=== PATIENT | female | born 1970 | race Caucasian/White ===

== ENCOUNTER 2017-07-27 21:40 | Emergency (ER) | payer BC ==
--- NOTE | 2017-07-27 22:19 | RAD ---
PORTABLE CHEST: 07/27/17 HISTORY: Syncope. COMPARISON: 01/22/08 study. The heart size is borderline. Mediastinal structures are unremarkable. The lungs are clear of infilt rates. IMPRESSION: Borderline heart size. POS: [facility]
[2017-07-27 22:23] LABS: #Lymphocytes 1.3 thou/uL (1.20-3.40); #Monocytes 0.4 thou/uL (0.11-0.59); #Neutrophils 9.8 thou/uL (1.40-6.50); %Basophils 0.4 % (0.0-1.0); %Eosinophils 0.2 % (0.0-10.0); %Lymphocytes 11.3 % (21.0-51.0); %Monocytes 3.2 % (0.0-10.0); Mean Platelet Volume 6.2 fL (7.4-10.4); Red Blood Cell (RBC) Count 4.65 mill/uL (4.20-5.40); White Blood Cell (WBC) Count 11.5 thou/uL (4.8-10.8)
[2017-07-27 22:37] LABS: ALT (SGPT) 36 U/L (8-55); AST (SGOT) 23 U/L (5-34); Alkaline Phosphatase 107 U/L (40-150); Anion Gap 17 mmol/L (10-20); BUN (Urea Nitrogen) 13 mg/dL (7.0-18.7); Bilirubin, Total 0.3 mg/dL (0.2-1.2); CK (CPK) 52 U/L (29-168); Calc. Creatinine Clearance 0 mL/min (70-130); Calcium 9.2 mg/dL (7.8-10.44); Carbon Dioxide 26 mmol/L (22-29); Chloride 102 mmol/L (98-107); Estimated GFR-MDRD 64; Globulin 3.3 g/dL (2.4-3.5); Protein, Total 7.4 g/dL (6.0-8.3)
[2017-07-27 22:39] LABS: Troponin I Less than 0.010 ng/mL (< 0.028)
[2017-07-27] MEDS ORDERED: Potassium Chloride 20 MEQ TAB ONE (22:45)
[2017-07-27 23:20] LABS: Bilirubin Negative (Negative); Blood, Urine Negative (Negative); Glucose, Urine (Dipstick) Negative (Negative); Ketone, Urine Trace mg/dL (Negative); Nitrite Negative (Negative); Protein, Urine (Dipstick) Trace mg/dL (Neg-Trace); Urobilinogen 0.2 mg/dL (0.2-1.0)
[2017-07-27 23:22] LABS: RBC/HPF 0-3 HPF (0-3)
[2017-07-27 23:23] LABS: Bacteria/HPF 3+ HPF (None Seen); Hyaline Casts/LPF 0-3 HYALINE CAST LPF (0-3 Hyaline)
[2017-07-27 23:30] LABS: Amphetamine Detected (NotDetected); Methadone Not Detected (NotDetected); Methamphetamine Not Detected (NotDetected)
== END 2017-07-27 23:52 | disposition home or self-care (01) ==
LOC: SCSER 21:40
DX: E87.1 Hypo-osmolality and hyponatremia (principal); E86.0 Dehydration; F31.9 Bipolar disorder, unspecified; F41.9 Anxiety disorder, unspecified; F17.200 Nicotine dependence, unspecified, uncomplicated
CPT/HCPCS: 71010; 80053; 80306; 81003; 81015; 82550; 82553; 84484; 84703; 85025; 87086; 93005; 96360

== ENCOUNTER 2017-07-30 07:47 | Emergency (ER) | payer BC | END 2017-07-30 08:25 | disposition home or self-care (01) | LOC: ERS 07:47 | DX: F41.9 Anxiety disorder, unspecified (principal); F31.9 Bipolar disorder, unspecified; F17.200 Nicotine dependence, unspecified, uncomplicated; Z71.6 Tobacco abuse counseling | CPT/HCPCS: 99283 ==

== ENCOUNTER 2017-09-21 20:46 | Emergency (ER) | payer BC, SELFPAY ==
[2017-09-21] MEDS ORDERED: Lorazepam 2 MG/ML VIAL ONE (21:35)
[2017-09-21 22:08] LABS: ALT (SGPT) 17 U/L (8-55); AST (SGOT) 15 U/L (5-34); Alkaline Phosphatase 85 U/L (40-150); Anion Gap 13 mmol/L (10-20); BUN (Urea Nitrogen) 13 mg/dL (7.0-18.7); Bilirubin, Total 0.3 mg/dL (0.2-1.2); Calc. Creatinine Clearance 0 mL/min (70-130); Calcium 9.1 mg/dL (7.8-10.44); Carbon Dioxide 22 mmol/L (22-29); Chloride 108 mmol/L (98-107); Estimated GFR-MDRD 78; Protein, Total 6.9 g/dL (6.0-8.3)
[2017-09-21 22:38] LABS: Hemoglobin A1c 4.9 % (4.0-6.0)
== END 2017-09-21 23:24 | disposition home or self-care (01) ==
LOC: ERS 20:46
DX: F41.9 Anxiety disorder, unspecified (principal); F17.200 Nicotine dependence, unspecified, uncomplicated; F31.9 Bipolar disorder, unspecified; Z79.899 Other long term (current) drug therapy
CPT/HCPCS: 36415; 80053; 83036; 84443; 93005; 96361; 96374; J2060

== ENCOUNTER 2017-09-22 15:44 | Emergency (ER) | payer BC, SELFPAY | END 2017-09-22 17:24 | disposition home or self-care (01) | LOC: ERS 15:44 | DX: F41.9 Anxiety disorder, unspecified (principal); F31.9 Bipolar disorder, unspecified; F17.200 Nicotine dependence, unspecified, uncomplicated; Z79.899 Other long term (current) drug therapy | CPT/HCPCS: 99283 ==

== ENCOUNTER 2017-09-28 01:20 | Emergency (ER) | payer BC | END 2017-09-28 02:14 | disposition left against medical advice (07) | LOC: ERS 01:20 | DX: Z53.21 Procedure and treatment not carried out due to patient leaving prior to being seen by health care provider (principal) ==

== ENCOUNTER 2017-11-11 21:26 | Emergency (ER) | payer SELFPAY | END 2017-11-11 22:47 | disposition left against medical advice (07) | LOC: ERS 21:26 | DX: Z53.21 Procedure and treatment not carried out due to patient leaving prior to being seen by health care provider (principal) ==

== ENCOUNTER 2017-11-12 18:55 | Emergency (ER) | payer SELFPAY ==
[2017-11-12] MEDS ORDERED: Metoclopramide HCl 10 MG/2 ML VIAL ONE (22:33)
[2017-11-12] MEDS ORDERED: diphenhydrAMINE 50 MG/ML VIAL IVP SCH (22:45)
[2017-11-12] MEDS ORDERED: Metoclopramide HCl 10 MG/2 ML VIAL IVP SCH (22:45)
[2017-11-12] MEDS ORDERED: Sodium Chloride 0.9% 1,000 ML IV SCH (22:45)
== END 2017-11-12 23:44 | disposition home or self-care (01) ==
LOC: ERS 18:55
DX: G43.909 Migraine, unspecified, not intractable, without status migrainosus (principal); M62.830 Muscle spasm of back; F41.9 Anxiety disorder, unspecified; F17.210 Nicotine dependence, cigarettes, uncomplicated
CPT/HCPCS: 96365; J2765

== ENCOUNTER 2018-01-12 00:42 | Emergency (ER) | payer SELFPAY ==
[2018-01-12] MEDS ORDERED: Meclizine HCl 25 MG TAB ONE (02:45)
[2018-01-12 03:02] LABS: #Eosinphils 0.1 thou/uL (0.0-0.7); #Lymphocytes 2.2 thou/uL (1.20-3.40); #Neutrophils 8.9 thou/uL (1.40-6.50); %Basophils 0.2 % (0.0-1.0); %Eosinophils 1.2 % (0.0-10.0); %Monocytes 7.8 % (0.0-10.0); %Neutrophils 72.8 % (42.0-75.0); Mean Corpuscular HGB CONC 34.5 g/dL (32.0-36.0); Mean Corpuscular Hemoglobin 31.4 pg (27.0-31.0); Mean Corpuscular Volume 90.9 fl (81.0-99.0); Mean Platelet Volume 6.8 fL (7.4-10.4); Platelet Count 306 thou/uL (130-400); RBC Distribution Width 13.5 % (11.5-14.5); Red Blood Cell (RBC) Count 4.47 mill/uL (4.20-5.40); White Blood Cell (WBC) Count 12.2 thou/uL (4.8-10.8)
[2018-01-12 03:03] LABS: Bilirubin Negative (Negative); Blood, Urine Small (Negative); Clarity CLOUDY (Clear); Glucose, Urine (Dipstick) Negative (Negative); Leukocyte Moderate (Negative); Nitrite Negative (Negative); Pregnancy Test - Urine (BHCG) Negative (Negative); Pregu Control Background? CLEAR/WHITE (CLR/WHITE); Pregu Control Bar Appear? YES (CONTROL BAR); Protein, Urine (Dipstick) Negative (Neg-Trace); Specific Gravity 1.019 (1.002-1.036); Specific Gravity, Urine 1.019 (1.002-1.036); Urobilinogen 0.2 mg/dL (0.2-1.0)
[2018-01-12 03:05] LABS: Bacteria/HPF None Seen HPF (None Seen); Hyaline Casts/LPF 7-10 HYALINE CAST LPF (0-3 Hyaline); Pathc Cast-AUWi Flag 1.88 (0-2.49); RBC/HPF 21-50 HPF (0-3)
[2018-01-12 03:13] LABS: Amphetamine Detected (NotDetected); Barbiturates Screen Not Detected (NotDetected); Benzodiazepine Screen Not Detected (NotDetected); Cocaine Metabolite Screen Not Detected (NotDetected); Medtox Control Line Valid? VALID (VALID); Medtox Reader # READER 4; Methadone Not Detected (NotDetected); Methamphetamine Not Detected (NotDetected); Opiate Screen Not Detected (NotDetected); Oxycodone Screen Not Detected (NotDetected); Phencyclidine (PCP) Not Detected (NotDetected); THC/Cannabinoid Screen Not Detected (NotDetected); Tricyclic Screen Not Detected (NotDetected)
[2018-01-12 03:25] LABS: ALT (SGPT) 16 U/L (8-55); AST (SGOT) 14 U/L (5-34); Albumin 4.1 g/dL (3.5-5.0); Alkaline Phosphatase 87 U/L (40-150); Anion Gap 11 mmol/L (10-20); BUN (Urea Nitrogen) 16 mg/dL (7.0-18.7); Bilirubin, Total 0.3 mg/dL (0.2-1.2); Calc. Creatinine Clearance 0 mL/min (70-130); Calcium 9.5 mg/dL (7.8-10.44); Carbon Dioxide 27 mmol/L (22-29); Chloride 106 mmol/L (98-107); Estimated GFR-MDRD 81; Globulin 2.8 g/dL (2.4-3.5); Glucose 92 mg/dL (70-105); Potassium 3.6 mmol/L (3.5-5.1); Protein, Total 6.9 g/dL (6.0-8.3); Sodium 140 mmol/L (136-145)
[2018-01-12 03:38] LABS: Renal Epithelial None Seen HPF (0-3); Transitional Epithelial NONE SEEN HPF (0-3); Trichomonas/HPF None Seen HPF (None Seen)
== END 2018-01-12 04:15 | disposition home or self-care (01) ==
LOC: ERS 00:42
DX: G43.909 Migraine, unspecified, not intractable, without status migrainosus; F41.9 Anxiety disorder, unspecified; N39.0 Urinary tract infection, site not specified; F98.8 Other specified behavioral and emotional disorders with onset usually occurring in childhood and adolescence; H81.10 Benign paroxysmal vertigo, unspecified ear; F43.10 Post-traumatic stress disorder, unspecified; F17.210 Nicotine dependence, cigarettes, uncomplicated; F31.9 Bipolar disorder, unspecified
CPT/HCPCS: 36415; 80053; 80306; 81003; 81015; 81025; 84443; 85025; 93005; 96360

== ENCOUNTER 2018-01-23 01:28 | Emergency (ER) | payer SELFPAY ==
[2018-01-23 02:01] LABS: #Basophils 0.1 thou/uL (0.0-0.2); #Eosinphils 0.4 thou/uL (0.0-0.7); #Lymphocytes 3.1 thou/uL (1.20-3.40); #Monocytes 0.8 thou/uL (0.11-0.59); #Neutrophils 6.2 thou/uL (1.40-6.50); %Basophils 1.1 % (0.0-1.0); %Monocytes 7.6 % (0.0-10.0); %Neutrophils 58.3 % (42.0-75.0); Hemoglobin 12.8 g/dL (12.0-16.0); Mean Corpuscular HGB CONC 32.1 g/dL (32.0-36.0); Mean Corpuscular Hemoglobin 30.1 pg (27.0-31.0); Mean Corpuscular Volume 93.8 fl (81.0-99.0); Mean Platelet Volume 7.7 fL (7.4-10.4); Platelet Count 257 thou/uL (130-400); RBC Distribution Width 13.5 % (11.5-14.5); Red Blood Cell (RBC) Count 4.23 mill/uL (4.20-5.40); White Blood Cell (WBC) Count 10.6 thou/uL (4.8-10.8)
[2018-01-23 02:20] LABS: ALT (SGPT) 37 U/L (8-55); AST (SGOT) 24 U/L (5-34); Albumin 3.8 g/dL (3.5-5.0); Alkaline Phosphatase 83 U/L (40-150); Anion Gap 7 mmol/L (10-20); BUN (Urea Nitrogen) 18 mg/dL (7.0-18.7); Bilirubin, Total 0.2 mg/dL (0.2-1.2); Calc. Creatinine Clearance 0 mL/min (70-130); Carbon Dioxide 27 mmol/L (22-29); Chloride 111 mmol/L (98-107); Estimated GFR-MDRD 83; Globulin 2.8 g/dL (2.4-3.5); Glucose 90 mg/dL (70-105); Potassium 3.7 mmol/L (3.5-5.1); Protein, Total 6.6 g/dL (6.0-8.3); Sodium 141 mmol/L (136-145)
[2018-01-23] MEDS ORDERED: Meclizine HCl 25 MG TAB ONE (02:58)
[2018-01-23] MEDS ORDERED: Ondansetron ODT 4 MG TAB ONE (02:59)
== END 2018-01-23 03:19 | disposition home or self-care (01) ==
LOC: ERS 01:28 → EEVIPCON 01:28 → ERS 03:19
DX: H81.13 Benign paroxysmal vertigo, bilateral (principal); G43.909 Migraine, unspecified, not intractable, without status migrainosus; F98.8 Other specified behavioral and emotional disorders with onset usually occurring in childhood and adolescence; F43.10 Post-traumatic stress disorder, unspecified; F17.210 Nicotine dependence, cigarettes, uncomplicated; F41.9 Anxiety disorder, unspecified; F31.9 Bipolar disorder, unspecified; Z79.899 Other long term (current) drug therapy
CPT/HCPCS: 36415; 80053; 85025; 93005; Q0162

== ENCOUNTER 2018-01-29 02:37 | Emergency (ER) | payer SELFPAY | END 2018-01-29 03:24 | disposition home or self-care (01) | LOC: ERS 02:37 | DX: F41.1 Generalized anxiety disorder (principal); G43.909 Migraine, unspecified, not intractable, without status migrainosus; F98.8 Other specified behavioral and emotional disorders with onset usually occurring in childhood and adolescence; F41.9 Anxiety disorder, unspecified; F43.10 Post-traumatic stress disorder, unspecified; F31.9 Bipolar disorder, unspecified; F17.210 Nicotine dependence, cigarettes, uncomplicated; Z79.899 Other long term (current) drug therapy | CPT/HCPCS: 99283 ==

== ENCOUNTER 2018-02-28 21:35 | Emergency (ER) | payer SELFPAY ==
[2018-02-28 22:34] LABS: #Basophils 0.1 thou/uL (0.0-0.2); #Eosinphils 0.1 thou/uL (0.0-0.7); #Lymphocytes 1.7 thou/uL (1.20-3.40); #Monocytes 0.7 thou/uL (0.11-0.59); #Neutrophils 7.4 thou/uL (1.40-6.50); %Basophils 0.6 % (0.0-1.0); %Eosinophils 0.9 % (0.0-10.0); %Lymphocytes 17.2 % (21.0-51.0); %Monocytes 6.6 % (0.0-10.0); %Neutrophils 74.7 % (42.0-75.0); Mean Corpuscular Hemoglobin 30.7 pg (27.0-31.0); Mean Corpuscular Volume 92.9 fl (81.0-99.0); Platelet Count 332 thou/uL (130-400); RBC Distribution Width 13.7 % (11.5-14.5); Red Blood Cell (RBC) Count 4.58 mill/uL (4.20-5.40); White Blood Cell (WBC) Count 9.9 thou/uL (4.8-10.8)
[2018-02-28 22:52] LABS: Acetaminophen Less than 6.0 mcg/mL (10.0-30.0); Alcohol Less than 10 mg/dL (Less than 10); CK (CPK) 59 U/L (29-168); Salicylate Less than 8.0 mg/dL (15.0-30.0)
[2018-02-28 22:53] LABS: ALT (SGPT) 21 U/L (8-55); AST (SGOT) 16 U/L (5-34); Albumin 3.8 g/dL (3.5-5.0); Alkaline Phosphatase 69 U/L (40-150); Anion Gap 11 mmol/L (10-20); BUN (Urea Nitrogen) 13 mg/dL (7.0-18.7); Bilirubin, Total 0.9 mg/dL (0.2-1.2); Calc. Creatinine Clearance 0 mL/min (70-130); Carbon Dioxide 28 mmol/L (22-29); Chloride 106 mmol/L (98-107); Estimated GFR-MDRD 78; Globulin 2.5 g/dL (2.4-3.5); Glucose 98 mg/dL (70-105); Potassium 3.1 mmol/L (3.5-5.1); Protein, Total 6.3 g/dL (6.0-8.3); Sodium 142 mmol/L (136-145)
== END 2018-03-01 01:25 | disposition home or self-care (01) ==
LOC: ERS 21:35
DX: F41.9 Anxiety disorder, unspecified (principal); G43.909 Migraine, unspecified, not intractable, without status migrainosus; F98.8 Other specified behavioral and emotional disorders with onset usually occurring in childhood and adolescence; F43.10 Post-traumatic stress disorder, unspecified; F17.210 Nicotine dependence, cigarettes, uncomplicated
CPT/HCPCS: 36415; 80053; 80307; 82550; 84443; 85025; 93005

== ENCOUNTER 2018-04-08 03:00 | Emergency (ER) | payer SELFPAY ==
[2018-04-08] MEDS ORDERED: Ibuprofen 200 MG TAB ONE (04:19)
--- NOTE | 2018-04-08 09:12 | RAD ---
LEFT FOREARM 2 VIEWS: HISTORY: Left forearm pain. FINDINGS/IMPRESSION: No bony abnormality is seen. The left radius and ulna appear intact. There is a small osteophyte ar ising from the coronoid process of the ulna. POS: [facility]
== END 2018-04-08 04:24 | disposition home or self-care (01) ==
LOC: ERS 03:00
DX: M25.532 Pain in left wrist (principal); G43.909 Migraine, unspecified, not intractable, without status migrainosus; F41.9 Anxiety disorder, unspecified; F43.10 Post-traumatic stress disorder, unspecified; F31.9 Bipolar disorder, unspecified; F98.8 Other specified behavioral and emotional disorders with onset usually occurring in childhood and adolescence; F17.210 Nicotine dependence, cigarettes, uncomplicated; Z79.899 Other long term (current) drug therapy

== ENCOUNTER 2018-04-18 18:17 | Inpatient (IN) | payer SELFPAY ==
[2018-04-18] MEDS ORDERED: Succinylcholine Chloride 20 MG/ML 10 ml SYRINGE FS ONE (18:23)
[2018-04-18] MEDS ORDERED: Propofol 1,000 MG/100 ML VIAL IV ONE (18:42)
[2018-04-18 18:49] LABS: #Basophils 0.1 thou/uL (0.0-0.2); #Eosinphils 0.3 thou/uL (0.0-0.7); #Lymphocytes 3.2 thou/uL (1.20-3.40); #Neutrophils 5.5 thou/uL (1.40-6.50); %Basophils 1.2 % (0.0-1.0); %Eosinophils 2.9 % (0.0-10.0); %Lymphocytes 31.6 % (21.0-51.0); %Monocytes 9.4 % (0.0-10.0); %Neutrophils 54.9 % (42.0-75.0); Hemoglobin 12.1 g/dL (12.0-16.0); Mean Corpuscular HGB CONC 33.9 g/dL (32.0-36.0); Mean Corpuscular Hemoglobin 31.6 pg (27.0-31.0); Mean Corpuscular Volume 93.1 fL (78.0-98.0); Mean Platelet Volume 7.1 fL (7.4-10.4); Platelet Count 240 thou/uL (130-400); RBC Distribution Width 13.7 % (11.5-14.5); Red Blood Cell (RBC) Count 3.85 mill/uL (4.20-5.40); White Blood Cell (WBC) Count 10.1 thou/uL (4.8-10.8)
[2018-04-18 18:55] LABS: ALT (SGPT) 15 U/L (8-55); AST (SGOT) 18 U/L (5-34); Acetaminophen Less than 6.0 mcg/mL (10.0-30.0); Albumin 3.5 g/dL (3.5-5.0); Alcohol Less than 10 mg/dL (Less than 10); Alkaline Phosphatase 71 U/L (40-150); Anion Gap 10 mmol/L (10-20); BUN (Urea Nitrogen) 20 mg/dL (7.0-18.7); Bilirubin, Total 0.2 mg/dL (0.2-1.2); Calc. Creatinine Clearance 0 mL/min (70-130); Calcium 8.3 mg/dL (7.8-10.44); Carbon Dioxide 27 mmol/L (22-29); Chloride 111 mmol/L (98-107); Estimated GFR-MDRD 74; Globulin 2.1 g/dL (2.4-3.5); Glucose 115 mg/dL (70-105); Potassium 3.8 mmol/L (3.5-5.1); Protein, Total 5.6 g/dL (6.0-8.3); Salicylate Less than 8.0 mg/dL (15.0-30.0); Sodium 144 mmol/L (136-145)
[2018-04-18 19:03] LABS: Bilirubin Negative (Negative); Blood, Urine Negative (Negative); Clarity CLEAR (Clear); Glucose, Urine (Dipstick) Negative (Negative); Leukocyte Negative (Negative); Nitrite Negative (Negative); Protein, Urine (Dipstick) Negative (Neg-Trace); Specific Gravity, Urine 1.011 (1.002-1.036); Urobilinogen 0.2 mg/dL (0.2-1.0); pH, Urine 6.5 (5.0-9.0)
[2018-04-18 19:03] LABS: Actual Bicarbonate (HCO3a) 24.9 mEq/L (22-28); Base Excess (BEa) -0.6 mEq/L (-2.0 to +3.0); CO2 Tension 44.3 mmHg (35.0-45.0); Hematocrit-ABG 35.5 % (36.0-47.0); Hemoglobin (Hb) 11.5 g/dL (12.0-16.0); O2 Tension (PaO2) 174.5 mmHg (80.0-100.0); pH, Arterial 7.37 (7.35-7.45)
[2018-04-18 19:04] LABS: ALV-art Gradient 55.325 (0-20); Analyzer IN Cardio ER; Calcium, Ionized 1.2 mmol/L (1.12-1.30); Puncture Site L RADIAL
[2018-04-18 19:08] LABS: Pregnancy Test - Urine (BHCG) Negative (Negative); Pregu Control Background? CLEAR/WHITE (CLR/WHITE); Pregu Control Bar Appear? YES (CONTROL BAR); Specific Gravity 1.011 (1.002-1.036)
[2018-04-18 19:09] LABS: Amphetamine Not Detected (NotDetected); Barbiturates Screen Not Detected (NotDetected); Benzodiazepine Screen Not Detected (NotDetected); Cocaine Metabolite Screen Not Detected (NotDetected); Medtox Control Line Valid? VALID (VALID); Medtox Reader # READER 1; Methadone Not Detected (NotDetected); Methamphetamine Not Detected (NotDetected); Opiate Screen Not Detected (NotDetected); Oxycodone Screen Not Detected (NotDetected); Phencyclidine (PCP) Not Detected (NotDetected); THC/Cannabinoid Screen Not Detected (NotDetected); Tricyclic Screen Not Detected (NotDetected)
--- NOTE | 2018-04-18 19:15 | RAD ---
AP VIEW CHEST: 04/18/18 HISTORY: Drug overdose. Sluggish speech. AP view chest is obtained on 04/18/18. Comparison made to previous exam from 07/27/17. The AP view chest demonstrates nasogastric and endotracheal tubes to be in place. The lungs are well aerated. No evidence of active intrathoracic disease seen. No evidence of effusions, pneumonia or pne umothorax seen. IMPRESSION: Unremarkable AP view chest. POS: [facility]
[2018-04-18] MEDS ORDERED: Ventilator Sedation Protocol 1 EACH FS ONE (20:54)
[2018-04-18] MEDS ORDERED: Propofol BOLUS 1,000 MG/100 ML VIAL IV PRN (20:58)
[2018-04-18] MEDS ORDERED: fentaNYL Citrate/PF 2,000 MCG in Sodium Chloride 0.9% 60 ML IV SCH (20:58)
[2018-04-18] MEDS ORDERED: Fentanyl BOLUS 250 ML IVPB PRN (20:58)
[2018-04-18] MEDS ORDERED: Lorazepam 2 MG/ML VIAL SLOW IVP PRN (20:58)
[2018-04-18] MEDS ORDERED: DISCONTINUE PREVIOUS NARCOTIC PAIN MEDICATIONS AND BENZODIAZEPINES FS SCH (20:58)
[2018-04-18] MEDS ORDERED: Propofol 1,000 MG/100 ML VIAL IV PRN (20:58)
[2018-04-18] MEDS ORDERED: Enoxaparin Sodium 30 MG/0.3 ML SYRINGE SC SCH (21:00)
[2018-04-18] MEDS: Sodium Chloride 0.9% 1,000 ML IV SCH (22:18)
[2018-04-18] MEDS: Famotidine/PF 20 mg/2ml Vial SLOW IVP SCH (22:20)
[2018-04-19 04:07] LABS: #Basophils 0.1 thou/uL (0.0-0.2); #Eosinphils 0.3 thou/uL (0.0-0.7); #Lymphocytes 2.7 thou/uL (1.20-3.40); #Monocytes 0.8 thou/uL (0.11-0.59); #Neutrophils 5.1 thou/uL (1.40-6.50); %Basophils 0.7 % (0.0-1.0); %Eosinophils 3.2 % (0.0-10.0); %Lymphocytes 30.4 % (21.0-51.0); %Monocytes 9.1 % (0.0-10.0); %Neutrophils 56.7 % (42.0-75.0); Hemoglobin 10.5 g/dL (12.0-16.0); Mean Corpuscular HGB CONC 33.6 g/dL (32.0-36.0); Mean Corpuscular Hemoglobin 31.6 pg (27.0-31.0); Mean Corpuscular Volume 94.3 fL (78.0-98.0); Platelet Count 200 thou/uL (130-400); RBC Distribution Width 13.6 % (11.5-14.5); Red Blood Cell (RBC) Count 3.31 mill/uL (4.20-5.40)
[2018-04-19 04:13] LABS: Anion Gap 8 mmol/L (10-20); BUN (Urea Nitrogen) 13 mg/dL (7.0-18.7); Calc. Creatinine Clearance 155 mL/min (70-130); Calcium 7.4 mg/dL (7.8-10.44); Carbon Dioxide 22 mmol/L (22-29); Chloride 118 mmol/L (98-107); Estimated GFR-MDRD Greater than 90; Glucose 106 mg/dL (70-105); Potassium 3.6 mmol/L (3.5-5.1); Sodium 144 mmol/L (136-145)
[2018-04-19] MEDS: Sodium Chloride 0.9% 1,000 ML IV SCH ×2 (08:00→18:29)
--- NOTE | 2018-04-19 08:13 | HP ---
DATE OF ADMISSION: 04/18/2018 CHIEF COMPLAINT: Decreased mental status. HISTORY OF PRESENT ILLNESS: This is a 48-year-old female with a known history of anxiety who present ed after being found to be overly somnolent. At the time of my evaluation in the emergency departmen t, the patient has already been intubated and is currently sedated on propofol. It appears that deo ent took clonazepam approximately 1 hour prior to EMS arrival. The patient was drowsy, but arousable . Upon EMS arrival, however, upon arrival in the emergency department, had progressively decreased m entation. REVIEW OF SYSTEMS: Unable to obtain secondary to patient's mentation. PAST MEDICAL HISTORY: Significant for anxiety and migraines, status post cholecystectomy. Also, not able psychiatric history for bipolar disorder and anxiety without any prior history of either suicida l ideation or suicide attempt. As the patient is unable to provide, this history was gathered from h er prior record. HOME MEDICATIONS: Significant for Zyprexa and clonazepam. ALLERGIES: No known drug allergies. FAMILY HISTORY: Unknown secondary to patient is unable to provide. SOCIAL HISTORY: Appears that patient has a prior history noted for occasional tobacco use with an un specified quantity. No alcohol use history nor any substance abuse history. PHYSICAL EXAMINATION: GENERAL: The patient is lying in the hospital bed, intubated, sedated. HEENT: Normocephalic, atraumatic. ET tube being in place. CARDIOVASCULAR: S1, S2. Soft heart tones. Pulses 2+ bilateral upper extremities, no pitting pedal edema. RESPIRATORY: Limited anterior examination notable for prominent ventilator sounds bilaterally. ABDOMEN: Positive bowel sounds, soft. LABORATORY DATA: WBC 10.1, hemoglobin 12.1, hematocrit 35.8, platelets 240. ABG: pH of 7.37, pO2 o f 174, pCO2 of 44.3, bicarbonate 24.9. CMP: Sodium 144, chloride of 118, potassium 3.8, bicarbonate 27, BUN 20, creatinine 0.83, glucose 115, calcium 8.3, total bilirubin 0.2, AST 18, ALT 15, alkaline phosphatase 71, total protein 5.6, albumin 3.5. UA is essentially bland. Urine test is n egative. UDS is essentially negative as well. Plasma alcohol level is negative. ASSESSMENT AND PLAN: 1. A 48-year-old female presenting with benzodiazepine overdose. I do not want benzodiazepine overd ose, status post intubation. I appreciate pulmonary consultation. Do not currently suspect that the patient has a primary pulmonary process likely due to decreased mentation or toxic metabolic encepha lopathy secondary to benzodiazepine overdose. 2. Suicide attempt. Patient is presumed to have a suicide attempt secondary to her known prior psyc hiatric diagnoses. She will require MS[facility] clearance prior to discharge. The patient is currently int ubated with sedation p.r.n. Poison Control has been notified through the emergency department accord ing to report that I received. 3. Deep venous thrombosis prophylaxis, enoxaparin. 4. Activity, currently bed rest. Thank you for asking me to care for the patient. Questions or concerns, please contact me at [facility].
--- NOTE | 2018-04-19 10:01 | CON ---
DATE OF CONSULTATION: 04/19/2018 A 35 minutes critical care time. CONSULTING PHYSICIAN: Dr. Mcdermott. REASON FOR CONSULTATION: Critical care management. HISTORY OF PRESENT ILLNESS: This is a 48-year-old female who presented to the emergency room yesterd ay with an apparent overdose on benzodiazepines. At the time of my dictation, there is no history an d physical on the chart, so what I have is obtained by looking at the ER records as the patient canno t give history. This patient was intubated at some point. I am not sure if that was in the field or in the ER. She was left on mechanical ventilation overnight. This morning, she will wake up and move around. PAST MEDICAL HISTORY: 1. Migraine headaches. 2. Anxiety. 3. Attention deficit disorder. 4. Post-traumatic stress disorder. 5. Bipolar disorder. PAST SURGICAL HISTORY: Cholecystectomy. SOCIAL HISTORY: Nonsmoker, does not use illicit drugs. Does smoke. MEDICATIONS PRIOR TO ADMISSION: It sounds like she was taking clonazepam, I am not sure if her compl ete list is accurate. Zyprexa is also listed. REVIEW OF SYSTEMS: Unobtainable as the patient is intubated. PHYSICAL EXAMINATION: VITAL SIGNS: Temperature 98.9, pulse 74, blood pressure 96/54, O2 sat 100%. HEENT: Pupils react. Sclerae are anicteric. Oropharynx clear. NECK: No JVD. LUNGS: Clear anteriorly. CARDIOVASCULAR: S1, S2 regular, without murmur. ABDOMEN: Soft, nontender, nondistended. EXTREMITIES: No clubbing, cyanosis, or edema. NEUROLOGIC: She moves all 4 extremities. LABORATORY DATA: White blood cell count 9, hematocrit 31.2, platelet count 200. ABG, pH 7.37, pCO2 44, PO2 of 174. Sodium 144, potassium 3.6, chloride 118, CO2 of 22, BUN 13, creatinine 0.6, glucose 106. ASSESSMENT: 1. Overdose - I am not sure if this was an intentional overdose or not. 2. Acute respiratory failure. PLAN: This patient is stable enough from a neurologic standpoint to be extubated, we can watch her i n the ICU several hours after extubation. It is likely that she will be medically cleared by this af ternoon for psychiatric disposition.
[2018-04-19] MEDS: Famotidine/PF 20 mg/2ml Vial SLOW IVP SCH ×2 (10:29→20:29)
[2018-04-20 05:40] LABS: #Basophils 0.1 thou/uL (0.0-0.2); #Eosinphils 0.2 thou/uL (0.0-0.7); #Lymphocytes 2.1 thou/uL (1.20-3.40); #Monocytes 0.7 thou/uL (0.11-0.59); #Neutrophils 5.9 thou/uL (1.40-6.50); %Basophils 0.6 % (0.0-1.0); %Eosinophils 2.4 % (0.0-10.0); %Lymphocytes 23.4 % (21.0-51.0); %Monocytes 8.2 % (0.0-10.0); %Neutrophils 65.5 % (42.0-75.0); Hemoglobin 11.7 g/dL (12.0-16.0); Mean Corpuscular HGB CONC 32.7 g/dL (32.0-36.0); Mean Corpuscular Hemoglobin 30.8 pg (27.0-31.0); Mean Corpuscular Volume 94.4 fL (78.0-98.0); Mean Platelet Volume 7.1 fL (7.4-10.4); Platelet Count 215 thou/uL (130-400); RBC Distribution Width 13.6 % (11.5-14.5)
[2018-04-20 05:45] LABS: Anion Gap 9 mmol/L (10-20); BUN (Urea Nitrogen) 5 mg/dL (7.0-18.7); Calc. Creatinine Clearance 137 mL/min (70-130); Calcium 7.9 mg/dL (7.8-10.44); Carbon Dioxide 24 mmol/L (22-29); Chloride 113 mmol/L (98-107); Estimated GFR-MDRD Greater than 90; Glucose 104 mg/dL (70-105); Potassium 3.4 mmol/L (3.5-5.1); Sodium 143 mmol/L (136-145)
[2018-04-20] MEDS: Sodium Chloride 0.9% 1,000 ML IV SCH (05:59)
--- NOTE | 2018-04-20 09:02 | PRG ---
DATE OF SERVICE: 04/20/2018 SUBJECTIVE: She is awake, alert, in no distress. She tells me that she accidentally took too much S eroquel and was not trying to hurt herself. PHYSICAL EXAMINATION: VITAL SIGNS: Temperature 98.3, pulse 84, blood pressure 120/78. HEENT: Unremarkable. NECK: No JVD. CHEST: Clear. CARDIAC: S1 and S2 regular. ABDOMEN: Soft. EXTREMITIES: No edema. LABORATORY DATA: Sodium 143, potassium 3.4, chloride 113, CO2 24, BUN 5, creatinine 0.7 and glucose 104. White blood cell count 9, hematocrit 35.9 and platelet count 215. ASSESSMENT: Status post unintentional overdose, status post respiratory failure. PLAN: She is cleared from a medical standpoint for further evaluation by [facility] and possible discharge today.
[2018-04-20] MEDS ORDERED: Potassium Chloride 20 MEQ TAB PO SCH (11:30)
[2018-04-20 11:37] VITALS: TEMP 98.4
--- NOTE | 2018-04-20 23:30 | DIS ---
DATE OF ADMISSION: 04/19/2018 DATE OF DISCHARGE: 04/20/2018 PRIMARY CARE PHYSICIAN: Korey Ramos MD DISCHARGE DIAGNOSES: 1. Accidental overdose on Seroquel. 2. Status post respiratory failure secondary to acute encephalopathy due to drug overdose. 3. History of bipolar disorder. IN-HOUSE CONSULTATIONS: 1. Pulmonary Critical Care Medicine, Dr. Levin. 2. [facility]. DISCHARGE MEDICATIONS: Resume home medications clonazepam 0.5 mg p.o. t.i.d. and 1 mg at bedtime, an d Zyprexa 20 mg daily. HISTORY OF PRESENT ILLNESS: Ms. Parmar is a 48-year-old female with known history of anxiety and depr ession, on multiple psychiatric medications; who presented to the emergency room with complaints of d ecreased mental status. At the time of presentation, it was unsure if the patient took clonazepam or overdosed on any other medication. She was intubated in the emergency room because of reduced menta l capacity and difficult to maintain airway. Drug screen in the urine was negative. Plasma alcohol level was negative. She was otherwise hemodynamically stable. She was admitted to the Critical Care Unit as a suicidal attempt. Please see admission history and physical for further details. HOSPITAL COURSE: Dr. Levin saw the patient in the critical care unit and she was promptly extubate d and did very well after that. [facility] was consulted once she was medically cleared. The patient repo rted that she has accidentally taken an additional dose of Seroquel. She has not used clonazepam on admission or prior to that. She only uses it as needed and she had an empty bottle in her bag becaus e she has run out several days ago. [facility] also saw the patient and cleared her for discharge. She wa s found to be not suicidal or homicidal. She was seen and examined prior to discharge. PHYSICAL EXAMINATION: VITAL SIGNS: Temperature 98.4, pulse of 83, respirations 19, saturating 100% on room air, blood pres sure 139/74. GENERAL: No acute distress, awake, alert, oriented x3. CHEST: Clear to auscultation without any wheezing, rales, or rhonchi. Rate and rhythm are regular w ithout any murmur, rubs or gallops. ABDOMEN: Soft, nontender, nondistended with positive bowel sounds. LABORATORY DATA: Hemoglobin 11.7. Serum chemistry showed a potassium of 3.4, which was supplemented by 40 mEq of p.o. potassium chloride prior to discharge. Urinalysis was negative. Urine test was negative. She was cleared by Pulmonary Medicine, Dr. Levin, for discharge as well as by [facility]. She was [facility] and a taxi was arranged for her by the hospital.
== END 2018-04-20 12:55 | disposition home or self-care (01) | DRG 208 ==
LOC: ERS 18:17 → CCU 21:39
PROVIDERS: ADMIT Internal Medicine; ATTEND Internal Medicine
PROC: 0BH17EZ Insertion of Endotracheal Airway into Trachea, Via Natural or Artificial Opening (ICD-10-PCS; principal; 2018-04-18)
PROC: 5A1935Z Respiratory Ventilation, Less than 24 Consecutive Hours (ICD-10-PCS; 2018-04-18)
DX: J96.00 Acute respiratory failure, unspecified whether with hypoxia or hypercapnia (principal); G92 Toxic encephalopathy; T43.591A Poisoning by other antipsychotics and neuroleptics, accidental (unintentional), initial encounter; F31.9 Bipolar disorder, unspecified; F17.290 Nicotine dependence, other tobacco product, uncomplicated
CPT/HCPCS: 31500; 36415; 51702; 71045; 80048; 80053; 80306; 80307; 81003; 81025; 82805; 85025; 93005; 94002; 94003; 96360; 96361; 96365; 96366; A4216; J1650; J2704; S0028

== ENCOUNTER 2018-05-11 10:25 | Emergency (ER) | payer SELFPAY | END 2018-05-11 11:30 | disposition home or self-care (01) | LOC: ERS 10:25 | DX: F41.9 Anxiety disorder, unspecified (principal); G43.909 Migraine, unspecified, not intractable, without status migrainosus; F98.8 Other specified behavioral and emotional disorders with onset usually occurring in childhood and adolescence; F43.10 Post-traumatic stress disorder, unspecified; F17.210 Nicotine dependence, cigarettes, uncomplicated; Z79.899 Other long term (current) drug therapy | CPT/HCPCS: 93005 ==

== ENCOUNTER 2018-05-21 18:00 | Emergency (ER) | payer SELFPAY ==
--- NOTE | 2018-05-21 19:52 | RAD ---
RADIOGRAPH RIGHT ELBOW 4 VIEWS: 05/21/18 HISTORY: 48-year-old female with right elbow pain. FINDINGS: Joint spaces are maintained without erosions or osteophytes. No evidence of joint effusion. No fractu re, dislocation, or destructive osseous lesion. No soft tissue calcification. IMPRESSION: Normal. POS: [facility]
== END 2018-05-21 20:15 | disposition left against medical advice (07) ==
LOC: ERS 18:00
DX: M79.601 Pain in right arm (principal); M79.81 Nontraumatic hematoma of soft tissue; G43.909 Migraine, unspecified, not intractable, without status migrainosus; F17.210 Nicotine dependence, cigarettes, uncomplicated; Z79.899 Other long term (current) drug therapy; Z53.21 Procedure and treatment not carried out due to patient leaving prior to being seen by health care provider

== ENCOUNTER 2018-07-14 18:04 | Emergency (ER) | payer BC, SELFPAY ==
[2018-07-14] MEDS ORDERED: Acetaminophen 500 MG TAB ONE (19:27)
[2018-07-14] MEDS ORDERED: diphenhydrAMINE 25 MG CAP ONE (19:27)
[2018-07-14] MEDS ORDERED: Metoclopramide HCl 10 MG/2 ML VIAL ONE (19:27)
[2018-07-14 21:15] LABS: Bilirubin Negative (Negative); Blood, Urine Negative (Negative); Clarity CLEAR (Clear); Glucose, Urine (Dipstick) Negative (Negative); Leukocyte Negative (Negative); Nitrite Negative (Negative); Protein, Urine (Dipstick) Negative (Neg-Trace); Specific Gravity, Urine 1.026 (1.002-1.036); Urobilinogen 0.2 mg/dL (0.2-1.0); pH, Urine 6.5 (5.0-9.0)
[2018-07-14] MEDS ORDERED: Magnesium 2 GM/50 ML 2 GM in Premix Bag 1 BAG IVPB SCH (21:45)
== END 2018-07-14 22:42 | disposition home or self-care (01) ==
LOC: ERS 18:04
DX: G43.909 Migraine, unspecified, not intractable, without status migrainosus (principal); F17.210 Nicotine dependence, cigarettes, uncomplicated
CPT/HCPCS: 81003; 96365; 96367; J2765

== ENCOUNTER 2018-07-15 19:17 | Emergency (ER) | payer SELFPAY ==
[2018-07-15 19:46] LABS: #Basophils 0.1 thou/uL (0.0-0.2); #Lymphocytes 1.9 thou/uL (1.20-3.40); #Monocytes 0.5 thou/uL (0.11-0.59); #Neutrophils 6.6 thou/uL (1.40-6.50); %Eosinophils 0.4 % (0.0-10.0); %Lymphocytes 20.8 % (21.0-51.0); %Neutrophils 72.8 % (42.0-75.0); Hemoglobin 12.7 g/dL (12.0-16.0); Mean Corpuscular Hemoglobin 30.1 pg (27.0-31.0); Mean Corpuscular Volume 91.1 fL (78.0-98.0); Mean Platelet Volume 7.1 fL (7.4-10.4); Platelet Count 347 thou/uL (130-400); RBC Distribution Width 14.2 % (11.5-14.5); Red Blood Cell (RBC) Count 4.21 mill/uL (4.20-5.40); White Blood Cell (WBC) Count 9.1 thou/uL (4.8-10.8)
[2018-07-15 20:07] LABS: ALT (SGPT) 11 U/L (8-55); AST (SGOT) 19 U/L (5-34); Alkaline Phosphatase 65 U/L (40-150); Anion Gap 11 mmol/L (10-20); BUN (Urea Nitrogen) 14 mg/dL (7.0-18.7); Bilirubin, Total 0.3 mg/dL (0.2-1.2); CK (CPK) 66 U/L (29-168); Calc. Creatinine Clearance 0 mL/min (70-130); Calcium 8.7 mg/dL (7.8-10.44); Carbon Dioxide 22 mmol/L (22-29); Chloride 111 mmol/L (98-107); Estimated GFR-MDRD 71; Globulin 2.9 g/dL (2.4-3.5); Glucose 112 mg/dL (70-105); Potassium 3.9 mmol/L (3.5-5.1); Protein, Total 6.9 g/dL (6.0-8.3); Sodium 140 mmol/L (136-145)
[2018-07-15 21:16] LABS: Bilirubin Negative (Negative); Blood, Urine Negative (Negative); Clarity CLEAR (Clear); Glucose, Urine (Dipstick) Negative (Negative); Leukocyte Small (Negative); Nitrite Negative (Negative); Protein, Urine (Dipstick) Negative (Neg-Trace); Specific Gravity, Urine 1.019 (1.002-1.036); Urobilinogen 0.2 mg/dL (0.2-1.0); pH, Urine 7.5 (5.0-9.0)
[2018-07-15 21:18] LABS: Bacteria/HPF None Seen HPF (None Seen); Hyaline Casts/LPF 0-3 HYALINE CAST LPF (0-3 Hyaline); Pathc Cast-AUWi Flag 0.29 (0-2.49); RBC/HPF 0-3 HPF (0-3); Squamous Epithelial 0-3 HPF (0-3); WBC/HPF 0-3 HPF (0-3)
== END 2018-07-15 21:20 | disposition home or self-care (01) ==
LOC: ERS 19:17
DX: T42.6X1A Poisoning by other antiepileptic and sedative-hypnotic drugs, accidental (unintentional), initial encounter (principal); G43.909 Migraine, unspecified, not intractable, without status migrainosus; F98.8 Other specified behavioral and emotional disorders with onset usually occurring in childhood and adolescence; F43.10 Post-traumatic stress disorder, unspecified; F31.9 Bipolar disorder, unspecified; F17.210 Nicotine dependence, cigarettes, uncomplicated; Z79.899 Other long term (current) drug therapy
CPT/HCPCS: 80053; 81003; 81015; 82550; 85025; 93005; 96360; 96361

== ENCOUNTER 2019-02-10 00:41 | Emergency (ER) | payer SELFPAY ==
[2019-02-10 01:40] LABS: #Basophils 0.1 thou/uL (0.0-0.2); #Eosinphils 0.2 thou/uL (0.0-0.7); #Lymphocytes 2.1 thou/uL (1.20-3.40); #Monocytes 0.6 thou/uL (0.11-0.59); #Neutrophils 4.5 thou/uL (1.40-6.50); %Basophils 1.1 % (0.0-1.0); %Eosinophils 2.2 % (0.0-10.0); %Monocytes 8.2 % (0.0-10.0); %Neutrophils 60.5 % (42.0-75.0); Hemoglobin 11.9 g/dL (12.0-16.0); Mean Corpuscular HGB CONC 32.6 g/dL (32.0-36.0); Mean Platelet Volume 7.4 fL (7.4-10.4); Platelet Count 275 thou/uL (130-400); RBC Distribution Width 14.4 % (11.5-14.5); Red Blood Cell (RBC) Count 3.95 mill/uL (4.20-5.40); White Blood Cell (WBC) Count 7.5 thou/uL (4.8-10.8)
[2019-02-10 02:02] LABS: ALT (SGPT) 12 U/L (8-55); AST (SGOT) 12 U/L (5-34); Albumin 3.4 g/dL (3.5-5.0); Alkaline Phosphatase 82 U/L (40-150); Anion Gap 8 mmol/L (10-20); BUN (Urea Nitrogen) 21 mg/dL (7.0-18.7); Bilirubin, Total Less than 0.2 mg/dL (0.2-1.2); Calc. Creatinine Clearance 0 mL/min (70-130); Calcium 8.5 mg/dL (7.8-10.44); Carbon Dioxide 29 mmol/L (22-29); Chloride 110 mmol/L (98-107); Estimated GFR-MDRD 69; Globulin 2.5 g/dL (2.4-3.5); Glucose 67 mg/dL (70-105); Protein, Total 5.9 g/dL (6.0-8.3); Sodium 143 mmol/L (136-145)
[2019-02-10] MEDS ORDERED: Metoclopramide 10 MG/10 ML UDCUP ONE (03:23)
[2019-02-10] MEDS ORDERED: Ibuprofen 200 MG TAB ONE (03:23)
[2019-02-10] MEDS ORDERED: Metoclopramide HCl 10 MG/2 ML VIAL ONE (03:23)
[2019-02-10] MEDS ORDERED: diphenhydrAMINE 50 MG/ML VIAL ONE (03:23)
== END 2019-02-10 04:31 | disposition home or self-care (01) ==
LOC: ERS 00:41
DX: R51 Headache (principal); F41.9 Anxiety disorder, unspecified; F98.8 Other specified behavioral and emotional disorders with onset usually occurring in childhood and adolescence; F43.10 Post-traumatic stress disorder, unspecified; F31.9 Bipolar disorder, unspecified; F17.210 Nicotine dependence, cigarettes, uncomplicated; Z79.899 Other long term (current) drug therapy; Z71.6 Tobacco abuse counseling
CPT/HCPCS: 36415; 80053; 85025; 96365; 96375; 99406; J1200; J2765; J8597

== ENCOUNTER 2019-02-13 03:18 | Emergency (ER) | payer SELFPAY ==
[2019-02-13 03:50] LABS: #Basophils 0.1 thou/uL (0.0-0.2); #Eosinphils 0.2 thou/uL (0.0-0.7); #Lymphocytes 2.4 thou/uL (1.20-3.40); #Monocytes 0.7 thou/uL (0.11-0.59); #Neutrophils 5.6 thou/uL (1.40-6.50); %Basophils 0.9 % (0.0-1.0); %Eosinophils 1.8 % (0.0-10.0); %Lymphocytes 26.6 % (21.0-51.0); %Monocytes 7.7 % (0.0-10.0); Hemoglobin 12.4 g/dL (12.0-16.0); Mean Corpuscular HGB CONC 32.9 g/dL (32.0-36.0); Mean Corpuscular Volume 91.1 fL (78.0-98.0); Mean Platelet Volume 7.7 fL (7.4-10.4); Platelet Count 313 thou/uL (130-400); RBC Distribution Width 14.5 % (11.5-14.5); Red Blood Cell (RBC) Count 4.15 mill/uL (4.20-5.40); White Blood Cell (WBC) Count 8.9 thou/uL (4.8-10.8)
[2019-02-13] MEDS ORDERED: diphenhydrAMINE 50 MG/ML VIAL ONE (04:02)
[2019-02-13] MEDS ORDERED: Ketorolac Tromethamine 30 MG/ML VIAL ONE (04:02)
[2019-02-13] MEDS ORDERED: Prochlorperazine 10 MG/2 ML VIAL IVP SCH (04:15)
[2019-02-13 04:24] LABS: ALT (SGPT) 16 U/L (8-55); AST (SGOT) 19 U/L (5-34); Albumin 3.7 g/dL (3.5-5.0); Alkaline Phosphatase 99 U/L (40-150); Anion Gap 14 mmol/L (10-20); BUN (Urea Nitrogen) 24 mg/dL (7.0-18.7); Bilirubin, Total Less than 0.2 mg/dL (0.2-1.2); Calc. Creatinine Clearance 0 mL/min (70-130); Calcium 8.7 mg/dL (7.8-10.44); Carbon Dioxide 23 mmol/L (22-29); Chloride 108 mmol/L (98-107); Estimated GFR-MDRD 65; Globulin 2.9 g/dL (2.4-3.5); Glucose 122 mg/dL (70-105); Protein, Total 6.6 g/dL (6.0-8.3); Sodium 141 mmol/L (136-145)
== END 2019-02-13 05:17 | disposition home or self-care (01) ==
LOC: ERS 03:18
DX: R51 Headache (principal); I95.1 Orthostatic hypotension; F41.9 Anxiety disorder, unspecified; F43.10 Post-traumatic stress disorder, unspecified; F31.9 Bipolar disorder, unspecified; F17.210 Nicotine dependence, cigarettes, uncomplicated; Z79.899 Other long term (current) drug therapy
CPT/HCPCS: 80053; 85025; 93005; 96361; 96374; 96375; J0780; J1200; J1885

== ENCOUNTER 2020-09-19 18:16 | Emergency (ER) | payer SELFPAY ==
[~2020-09-19 18:16] MED LIST: Iopamidol-370 76% 500 ML 1 ML ONE
--- NOTE | 2020-09-19 19:10 | RAD ---
Exam: Chest one view HISTORY:Dyspnea Comparison: 04/18/2020 FINDINGS: Cardiac silhouette: Normal Aorta: Unremarkable Pulmonary vessels: Normal Costophrenic angles: Clear LUNGS: No masses or consolidation. Pneumothorax: None Osseous abnormalities: None IMPRESSION: No acute cardiopulmonary process.
[2020-09-19 19:46] LABS: #Basophils 0.1 thou/uL (0.0-0.2); #Eosinphils 0.1 thou/uL (0.0-0.7); #Lymphocytes 2.8 thou/uL (1.20-3.40); #Monocytes 0.9 thou/uL (0.11-0.59); %Basophils 0.6 % (0.0-1.0); %Eosinophils 0.9 % (0.0-10.0); %Lymphocytes 23.3 % (21.0-51.0); %Monocytes 7.5 % (0.0-10.0); %Neutrophils 67.7 % (42.0-75.0); Hemoglobin 13.3 g/dL (12.0-16.0); Mean Corpuscular HGB CONC 32.9 g/dL (32.0-36.0); Mean Corpuscular Hemoglobin 28.2 pg (27.0-31.0); Mean Corpuscular Volume 85.5 fL (78.0-98.0); Mean Platelet Volume 7.7 fL (7.4-10.4); Platelet Count 316 thou/uL (130-400); RBC Distribution Width 15.3 % (11.5-14.5); Red Blood Cell (RBC) Count 4.72 mill/uL (4.20-5.40); White Blood Cell (WBC) Count 11.8 thou/uL (4.8-10.8)
[2020-09-19 19:56] LABS: BHCG - Serum Negative (NEGATIVE); Pregs Control Background? CLEAR/WHITE (CLR/WHITE); Pregs Control Bar Appear? YES (CONTROL BAR)
[2020-09-19 19:58] LABS: Bacteria/HPF 1+ HPF (None Seen); Bilirubin Negative (Negative); Blood, Urine Negative (Negative); Clarity Clear (Clear); Glucose, Urine (Dipstick) Normal (Negative); Ketone, Urine Negative (Negative); Leukocyte 250 Leu/uL (Negative); Nitrite Negative (Negative); Protein, Urine (Dipstick) 10 mg/dL (Neg-Trace); Specific Gravity, Urine 1.029 (1.002-1.036); Urobilinogen Normal mg/dL (Less than 2); pH, Urine 6.5 (5.0-9.0)
[2020-09-19 20:12] LABS: ALT (SGPT) 56 U/L (8-55); AST (SGOT) 40 U/L (5-34); Alkaline Phosphatase 109 U/L (40-110); Anion Gap 16 mmol/L (10-20); BUN (Urea Nitrogen) 13 mg/dL (7.0-18.7); Bilirubin, Total 0.3 mg/dL (0.2-1.2); CK (CPK) 86 U/L (29-168); Calc. Creatinine Clearance 0 mL/min (70-130); Calcium 8.7 mg/dL (7.8-10.44); Carbon Dioxide 23 mmol/L (22-29); Chloride 106 mmol/L (98-107); Globulin 3.4 g/dL (2.4-3.5); Glucose 112 mg/dL (70-105); Lipase 24 U/L (8-78); Potassium 3.8 mmol/L (3.5-5.1); Protein, Total 7.4 g/dL (6.0-8.3); Sodium 141 mmol/L (136-145)
[2020-09-19] MEDS ORDERED: Aspirin Chewable 81 MG TAB ONE ×2 (20:22→20:31)
[2020-09-19] MEDS ORDERED: Lorazepam 2 MG/ML VIAL ONE (20:49)
--- NOTE | 2020-09-19 21:48 | CT ---
Exam: CT angiogram of the chest HISTORY: Chest pain. Dyspnea. Evaluate for pulmonary artery embolism. COMPARISON: None TECHNIQUE: CT angiogram of the chest is performed in the axial plane. Three-dimensional reformatted i mages are submitted for interpretation FINDINGS: Mediastinum: No mass, lymphadenopathy or hematoma. HEART: Normal size. No significant pericardial fluid. Aorta: No aneurysm or dissection Upper solid abdominal viscera: Hypodensities in the liver are too small to characterize. Some of the hypodensities are consistent with hepatic cysts. Trachea and central bronchi: Patent Pleural spaces: No effusion Lung parenchyma: No masses or consolidation. Pneumothorax: None Osseous structures: No lytic or blastic lesions Pulmonary arteries: Adequate contrast opacification pulmonary arterial system to the level of segment al arteries. No filling defect to suggest pulmonary embolism IMPRESSION:No evidence of pulmonary artery embolism to the level of the segmental arteries.
--- NOTE | 2020-09-24 16:51 | EKG ---
Test Reason : Blood Pressure : / mmHG Vent. Rate : 110 BPM Atrial Rate : 110 BPM P-R Int : 150 ms QRS Dur : 082 ms QT Int : 332 ms P-R-T Axes : 061 -02 021 degrees QTc Int : 449 ms Sinus tachycardia Possible Left atrial enlargement Borderline ECG Confirmed by JAVY HECK ([id number]), acquisition editor CAMRON SAHU ([id number]) on 09/24/2020 4:51:17 PM Referred By: Confirmed By:JAVY Sandy
== END 2020-09-19 22:55 | disposition home or self-care (01) ==
LOC: ERS 18:16
DX: R07.9 Chest pain, unspecified (principal); R06.00 Dyspnea, unspecified; G43.909 Migraine, unspecified, not intractable, without status migrainosus; F17.210 Nicotine dependence, cigarettes, uncomplicated; Z79.899 Other long term (current) drug therapy
CPT/HCPCS: 36415; 71045; 71275; 80053; 81003; 81015; 82550; 83690; 83880; 84484; 84703; 85025; 85379; 93005; 96374; J2060; Q9967

== ENCOUNTER 2020-12-06 04:19 | Emergency (ER) | payer SELFPAY ==
[2020-12-06] MEDS ORDERED: Ketorolac Tromethamine 30 MG/ML VIAL ONE (04:33)
--- NOTE | 2020-12-06 08:05 | RAD ---
Portable frontal chest radiograph: 12/06/2020 COMPARISON: 09/19/2020 HISTORY: Chest pain FINDINGS: Stable prominence of the cardiac silhouette. Mild nonspecific increased linear interstitial density. No pneumothorax, pleural fluid, lobar consolidation, or alveolar edema. IMPRESSION: No focal consolidation or alveolar edema.
--- NOTE | 2020-12-10 13:10 | EKG ---
Test Reason : Blood Pressure : / mmHG Vent. Rate : 083 BPM Atrial Rate : 083 BPM P-R Int : 144 ms QRS Dur : 076 ms QT Int : 362 ms P-R-T Axes : 041 -04 030 degrees QTc Int : 425 ms Normal sinus rhythm with sinus arrhythmia Possible Left atrial enlargement RSR' or QR pattern in V1 suggests right ventricular conduction delay Cannot rule out Inferior infarct , age undetermined Abnormal ECG Confirmed by LEOBARDO HERNANDEZ M.D. ([id number]), metropolitan editor CAMRON SAHU ([id number]) on 12/10/2020 1:10:37 PM Referred By: Confirmed By:LEOBARDO HERNANDEZ M.D.
== END 2020-12-06 05:25 | disposition home or self-care (01) ==
LOC: ERS 04:19
DX: R07.9 Chest pain, unspecified (principal); R05 Cough; B49 Unspecified mycosis; R51.9 Headache, unspecified; F17.210 Nicotine dependence, cigarettes, uncomplicated
CPT/HCPCS: 71045; 93005; 96372; J1885

== ENCOUNTER 2021-01-30 01:14 | Emergency (ER) | payer OTHER ==
[2021-01-30] MEDS ORDERED: diphenhydrAMINE 50 MG/ML VIAL ONE (02:12)
[2021-01-30] MEDS ORDERED: Metoclopramide HCl 10 MG/2 ML VIAL ONE (02:12)
[2021-01-30] MEDS ORDERED: Ketorolac Tromethamine 30 MG/ML VIAL ONE (02:12)
== END 2021-01-30 03:46 | disposition home or self-care (01) ==
LOC: ERS 01:14
DX: G43.909 Migraine, unspecified, not intractable, without status migrainosus (principal); F17.210 Nicotine dependence, cigarettes, uncomplicated
CPT/HCPCS: 96365; 96375; J1200; J1885; J2765

== ENCOUNTER 2021-05-25 23:11 | Emergency (ER) | payer OTHER, SELFPAY ==
[2021-05-26] MEDS ORDERED: Magnesium 2 GM/50 ML BAG (IN WATER) ONE (00:09)
[2021-05-26] MEDS ORDERED: diphenhydrAMINE 50 MG/ML VIAL ONE (00:09)
[2021-05-26] MEDS ORDERED: Ketorolac Tromethamine 30 MG/ML VIAL ONE (00:10)
[2021-05-26 00:20] LABS: Pregnancy Test - Urine (BHCG) Negative (Negative); Pregu Control Background? CLEAR/WHITE (CLR/WHITE); Pregu Control Bar Appear? YES (CONTROL BAR); Specific Gravity 1.031 (1.002-1.036)
[2021-05-26] MEDS ORDERED: Prochlorperazine 10 MG/2 ML VIAL IVP SCH (00:30)
== END 2021-05-26 00:56 | disposition home or self-care (01) ==
LOC: ERS 23:11
DX: G43.909 Migraine, unspecified, not intractable, without status migrainosus (principal); F17.210 Nicotine dependence, cigarettes, uncomplicated
CPT/HCPCS: 81025; 96365; 96375; J0780; J1200; J1885; J3475